=== PATIENT | female | born 1980 | race Caucasian/White ===

== ENCOUNTER 2022-06-07 15:02 | Emergency (ER) | payer OTHER ==
[~2022-06-07] VITALS: Ht 162.6 cm; Wt 77.1 kg
[2022-06-07 15:02] VITALS: BP 132/79
--- NOTE | 2022-06-07 15:02 | NUR ---
PT GLENDY BROWN, VIA GURNEY TO BED 08.
--- NOTE | 2022-06-07 15:11 | NUR ---
[facility] [phone]
[2022-06-07 15:17] VITALS: BP 118/72
[2022-06-07] MEDS ORDERED: levETIRAcetam 1,000 MG in NACL 0.9% 100 ML IV ONE (15:25)
[2022-06-07] MEDS ORDERED: NACL 0.9% 1,000 ML IV ONE (15:25)
[2022-06-07] MEDS ORDERED: levETIRAcetam 100 MG/ML VIAL IV ONE (15:29)
[2022-06-07 15:51] LABS: BASOPHILS % (AUTO) 0.3 % (0.0-2.0); HEMATOCRIT 39.3 % (36-48); HEMOGLOBIN 13.5 g/dL (12.0-16.0); LYMPHOCYTES # (AUTO) 1.5 K/uL (2.5-16.5); LYMPHOCYTES % (AUTO) 19.8 % (20.5-51.1); MEAN CORPUSCULAR HEMOGLOBIN 30 pg (27-31); MEAN CORPUSCULAR HGB CONC 34 g/dL (33-37); MEAN CORPUSCULAR VOLUME 87.6 fL (80-94); MONOCYTES # (AUTO) 0.4 K/uL (0.8-1.0); MONOCYTES % (AUTO) 4.9 % (1.7-9.3); NEUTROPHILS # (AUTO) 5.8 K/uL (1.8-7.7); PLATELET COUNT (AUTO) 274 K/uL (140-450); RED BLOOD CELL COUNT(AUTO) 4.49 MIL/uL (4.20-5.40); RED CELL DISTRIBUTION WIDTH 13.1 % (11.6-13.7); WHITE BLOOD COUNT (AUTO) 7.7 K/uL (4.8-10.8)
[2022-06-07 16:04] LABS: ALBUMIN 3.4 g/dL (3.4-5.0); ANION GAP 14.1 (8-16); CARBON DIOXIDE 23.5 mmol/L (21-32); CREATININE 0.9 mg/dL (0.6-1.3); MAGNESIUM 2.1 mg/dL (1.8-2.4); PHOSPHORUS 3.1 mg/dL (2.5-4.9); POTASSIUM 4.6 mmol/L (3.5-5.1); TOTAL BILIRUBIN 0.2 mg/dL (0.0-1.0)
--- NOTE | 2022-06-07 16:06 | NUR ---
Patient ambulated to restroom with steady gait.
[2022-06-07 16:19] LABS: APPEARANCE,URINE SL CLOUDY (CLEAR); BILIRUBIN,URINE NEGATIVE (NEGATIVE); BLOOD, URINE NEGATIVE (NEGATIVE); COLOR,URINE YELLOW (YELLOW); LEUKOCYTE ESTERASE ,URINE NEGATIVE (NEGATIVE); NITRITE, URINE NEGATIVE (NEGATIVE); UGLUCOSE NEGATIVE (NEGATIVE)
--- NOTE | 2022-06-07 17:19 | NUR ---
41 YO BIBA FROM A STORE F C/O S/P SEIZURE. PT REPORTS SHE HAD A TONIC CLONIC SEIZURE LASTING 3 MIN. PT STATES SHE FELL AND HIT HER HEAD ON A COUNTER TOP. PT C/O HEADACHE, ORAL TRAUMA NOTED, NO INCONTINENCE. NO VISUAL TRAUMA NOTED TO PT'S HEAD. DENIES N/V; SKIN IS PINK/WARM/DRY; AAOX4 WITH EVEN AND STEADY GAIT; HR EVEN AND REGULAR; PATIENT STATES PAIN OF 4/10 AT THIS TIME; VSS; PATIENT POSITIONED FOR COMFORT; HOB ELEVATED; BEDRAILS UP X2; BED DOWN. HX SEIZURE RX DILANTIN
[2022-06-07] MEDS ORDERED: ACETAMINOPHEN EXTRA STRENGTH 500 MG TAB PO ONE (17:30)
--- NOTE | 2022-06-07 17:43 | NUR ---
Patient discharged with v/s stable. Written and verbal after care instructions given and explained. Patient verbalized understanding. Ambulatory with steady gait. All questions addressed prior to discharge. Advised to follow up with PMD.
== END 2022-06-07 17:43 | disposition home or self-care (01) ==
LOC: MED 15:02
DX: G40.89 Other seizures (principal)
CPT/HCPCS: 36415; 70450; 70486; 80053; 81003; 81025; 83735; 84100; 85025; 96365; 99284; J1953; J7030